=== PATIENT | male | born 1975 | race Caucasian/White ===

== ENCOUNTER 2018-02-27 10:25 | Day surgery (SDC) | payer OTHER, SELFPAY ==
[2018-02-06 15:02] VITALS: BMI 37.5
[2018-02-27 10:58] VITALS: BP 138/99; PULSE 86; RESP 16; TEMP 36.8; O2SAT 98; BMI 38.0
[2018-02-27] MEDS: Cefazolin 2 GM in 0.9% Normal Saline 100 ML IV (12:05)
[2018-02-27] MEDS: Bupivacaine Mpf 0.5% 30 ML VIAL (12:37)
[2018-02-27 13:15] VITALS: BP 128/87; BP 138/99; PULSE 112; RESP 16; TEMP 36.3; O2SAT 89
[2018-02-27 13:30] VITALS: BP 119/81; BP 138/99; PULSE 102; RESP 16; O2SAT 98
[2018-02-27 13:35] VITALS: BP 132/91; BP 138/99; PULSE 102; RESP 16; O2SAT 99
--- NOTE | 2018-02-27 13:38 | PCM.OPRPT ---
Problem List (1) Scrotal swelling Status: Acute Report of Operation Date of Procedure: 02/27/18 Pre-Operative Diagnosis: Bilateral inguinal hernias and umbilical hernia Post-Operative Diagnosis: Possible retroperitoneal herniation into the scrotum. Umbilical hernia Surgery/Procedure Performed:: Exploratory laparoscopy Specimen's removed: None Description of Procedure: The patient was brought back to the operating room and general anesthesia was induced. The patient was positioned and a Spence catheter was placed. The abdomen and scrotum were prepped and draped in the usual sterile fashion. Next an incision was made superior to the umbilicus and a Veress needle was placed into the abdomen and a water drop test was completed. Next a port was placed into the abdomen and the abdomen was insufflated to 15 mmHg. The camera was then placed into the abdomen and inspected and there were no injuries. The umbilical hernia was inspected. This was not able to be fully reduced. The inguinal regions were inspected next and it appeared that there was not a hernia on either side from the abdomen. I had Dr. De Paz come into the room for his opinion. It was felt that these were either hydroceles or retroperitoneal contents herniating into the scrotum. At this time I felt that it was safest to abort the surgery and obtain imaging to better differentiate. The camera was removed from the abdomen and the air was allowed to desufflate from the abdomen. The port was removed and the incision was anesthetized with Marcaine and closed with interrupted 4-0 Monocryl suture and Steri-Strip and a bandage. The patient had his Spence removed and was taken to PACU in stable condition. I will obtain a CT with oral and IV contrast next week. - Admit VTE Documentation VTE Mechan Device Prophylaxis: SCD's
--- NOTE | 2018-02-27 13:43 | DCINST_ITS ---
- Discharge Diagnoses Current Active Problems: Current Active and Chronic Problems (Last Reviewed 02/06/18 @ 15:04 by Carolyn Lin) Scrotal swelling (Acute) You will use the following diet at home:: Regular Your food should be the consistency of: Regular Your liquids should be the consistency of: Regular/Thin Discharge Activity: No Restrictions Call your doctor if your incision/area has: Continuous Slow Oozing, Sudden Increased Bleeding, Increased Pain/ Swelling, Increased Redness, Foul Smelling Discharge, Swelling at the incision site Call your doctor if you observe: Fever of 101 or Higher Change Dressing in (Days):: 2 - Remove steri strips in 1 week Pending Tests on Discharge: CT scan next Allergies/Adverse Reactions: Allergies No Known Allergies Allergy (Verified 02/25/18 13:20) Medications to take at Discharge Cholecalciferol (Vitamin D3) [Vitamin D3] 5,000 unit PO DAILY 02/25/18 Vitamin B Complex 1 each PO DAILY 02/25/18 Primary Care Physician: Josh Bonilla [Primary Care Provider] - Test Results: Test results from this visit will be discussed in further detail at your follow- up appointment, if applicable.
[2018-02-27 14:22] VITALS: BP 138/99; BP 146/83; PULSE 95; RESP 16; TEMP 36.3; O2SAT 96
== END 2018-02-27 14:26 | disposition home or self-care (01) ==
LOC: SDC 10:26 → AC 10:30
PROVIDERS: Family Provider Family Medicine; PCP Family Medicine; Referring Provider Surgery; Visit Provider Surgery
PROC: (CPT 49505; principal; 2018-02-27 11:40)
DX: K42.9 Umbilical hernia without obstruction or gangrene (principal); N50.89 Other specified disorders of the male genital organs; Z87.891 Personal history of nicotine dependence
CPT/HCPCS: 49505; J7120; J2405

== ENCOUNTER → 2018-03-05 15:44 | Outpatient (CLI) | payer OTHER, SELFPAY ==
[2018-02-27 10:58] VITALS: BMI 38.0
--- NOTE | 2018-03-05 15:47 | CT_ITS ---
STUDY: CT ABDOMEN AND PELVIS WITH CONTRAST REASON FOR EXAM: Male, 42 years old. Attempted hernia repair. RADIATION DOSAGE (If Supplied By Facility): CTDIvol = ( 21.43 ) mGy, DLP = ( 1672.67 ) mGycm TECHNIQUE: Transaxial images were obtained from the dome of the diaphragm to the symphysis pubis with oral contrast. 100CC ml of Isovue 300 contrast was administered. Sagittal and coronal images were reconstructed. Individualized dose optimization techniques were used for this CT. COMPARISON: None. FINDINGS: The visualized lung bases are unremarkable. The visualized portions of the heart are within normal limits. There is decreased attenuation of the liver consistent with steatosis. Normal gallbladder and extrahepatic biliary system. Normal spleen. Normal pancreas. Normal bilateral adrenal glands. Normal right kidney. Normal left kidney. Normal visualized stomach. Normal small intestine. Normal colon. The appendix is visualized and appears normal. Normal abdominal aorta. Normal inferior vena cava. Normal retroperitoneum. Normal urinary bladder. There is a small umbilical hernia containing fat. The neck of the hernia measures 2.3 cm in transverse dimension. Bilateral inguinal hernias containing fat. Normal osseous structures. CT/Abdomen/Pelvis WITH Contrast IMPRESSION: Small umbilical hernia. Bilateral inguinal hernias containing fat. Fatty infiltration of the liver. Electronically Signed: Owen Carballo MD at 14:15 EST Tel [phone], Service support ,
--- OUTSIDE RECORDS SUMMARY | 2018-05-10 11:25 | XMS RPT_ITS ---
:1975 Author Organization [facility] Care Team Providers Name Role Phone Gabriel Bedoya Attending Unavailable VaccariBennie henry Referring Unavailable Calabrsergei, Gabriel Attending Unavailable CalabrGabriel mai Referring Unavailable Josh Bonilla Primary Care Unavailable Calsumit, Gabriel Attending Unavailable Calabrsergei, Gabriel Referring Unavailable [facility] Josh Primary Care Unavailable CalGabriel arana Consulting Unavailable Calabretta, Gabriel Attending Unavailable Calabretta, Gabriel Referring Unavailable [facility] Primary Care Unavailable PROBLEMS PROBLEMS No Problem Records FoundPROCEDURES PROCEDURES No Procedure Records FoundRESULTS RESULTS PATIENT COMMUNICATION Observed: 03/10/2018 Status: F Source: REBECA 8:46 AM [facility] REPOSITORY [place] [address] [place] [address] PATIENT COMMUNICATION 03/10/18 MR#: [id number] Acct: [id number] Name: LIZZETH GALE Rep #: [id number] : 1975 Provider: Gabriel Bedoya MD Age/Sex: 42/M Location: [facility] Patient Communication Details: The patient was taken for surgery last week but upon entering the abdomen there was no peritoneal defect and herniated contents. The surgery was aborted and the patient had a CAT scan which showed bilateral inguinal hernias with only retroperitoneal contents which is extremely rare. I have referred the patient to Dr. Gibbs at [facility] as he is a hernia specialist. Gabriel Bedoya MD Pager: [facility] [address] [place] [address], [address] [place] [address] Office: 03/10/18 0846 <Electronically signed by Gabriel Bedoya MD> Date Gabriel Bedoya MD Cosigner Signature: Date (if applicable) CC: Josh Bonilla MD ABDOMEN/PELVIS WITH Observed: 03/05/2018 Status: F Source: GRAPEVIEW CONTRAST 3:47 PM [facility] REPOSITORY [facility] Imaging Services [address] [place] [address] Abdomen/Pelvis WITH Contrast MR#: [id number] Acct: [id number] Name: LIZZETH GALE Rep #: [id number] : 1975 M 42 From: Owen Carballo MD PCP: Josh Bonilla MD Status: REG CLI Study: Abdomen/Pelvis WITH Contrast Date of Exam: 03/05/18 Exam# [id number] Ordering Dr: Gabriel Bedoya MD STUDY: CT ABDOMEN AND PELVIS WITH CONTRAST REASON FOR EXAM: Male, 42 years old. Attempted hernia repair. RADIATION DOSAGE (If Supplied By Facility): CTDIvol = ( 21.43 ) mGy, DLP = ( 1672.67 ) mGycm TECHNIQUE: Transaxial images were obtained from the dome of the diaphragm to the symphysis pubis with oral contrast. 100CC ml of Isovue 300 contrast was administered. Sagittal and coronal images were reconstructed. Individualized dose optimization techniques were used for this CT. COMPARISON: None. FINDINGS: The visualized lung bases are unremarkable. The visualized portions of the heart are within normal limits. There is decreased attenuation of the liver consistent with steatosis. Normal gallbladder and extrahepatic biliary system. Normal spleen. Normal pancreas. Normal bilateral adrenal glands. Normal right kidney. Normal left kidney. Normal visualized stomach. Normal small intestine. Normal colon. The appendix is visualized and appears normal. Normal abdominal aorta. Normal inferior vena cava. Normal retroperitoneum. Normal urinary bladder. There is a small umbilical hernia containing fat. The neck of the hernia measures 2.3 cm in transverse dimension. Bilateral inguinal hernias containing fat. Normal osseous structures. CT/Abdomen/Pelvis WITH Contrast IMPRESSION: Small umbilical hernia. Bilateral inguinal hernias containing fat. Fatty infiltration of the liver. Electronically Signed: Owen Carballo MD at 14:15 EST Tel [phone], Service support , CC: Gabriel Bedoya MD; Josh Bonilla MD Child Development Consultant: Signed DISCHARGE INSTRUCTION Observed: 02/27/2018 Status: F Source: GRAPEVIEW 1:43 PM [facility] REPOSITORY [facility] Medical Records Department [address] [place] [address] Instructions for Home/Discharge Instructions 02/27/18 1340 MR#: [id number] Acct: [id number] Name: LIZZETH GALE Rep #: [id number] : 1975 42 From: Gabriel Bedoya MD PCP: Josh Bonilla MD Status: REG SDC - Discharge Diagnoses Current Active Problems: Current Active and Chronic Problems (Last Reviewed 02/06/18 @ 15:04 by Carolyn Lin) Scrotal swelling (Acute) You will use the following diet at home:: Regular Your food should be the consistency of: Regular Your liquids should be the consistency of: Regular/Thin Discharge Activity: No Restrictions Call your doctor if your incision/area has: Continuous Slow Oozing, Sudden Increased Bleeding, Increased Pain/ Swelling, Increased Redness, Foul Smelling Discharge, Swelling at the incision site Call your doctor if you observe: Fever of 101 or Higher Change Dressing in (Days):: 2 - Remove steri strips in 1 week Pending Tests on Discharge: CT scan next Allergies/Adverse Reactions: Allergies No Known Allergies Allergy (Verified 02/25/18 13:20) Medications to take at Discharge Cholecalciferol (Vitamin D3) [Vitamin D3] 5,000 unit PO DAILY 02/25/18 Vitamin B Complex 1 each PO DAILY 02/25/18 Primary Care Physician: Josh Bonilla [Primary Care Provider] - Test Results: Test results from this visit will be discussed in further detail at your follow-up appointment, if applicable. 02/27/18 1343 <Electronically signed by Gabriel Bedoya MD> Date Gabriel Bedoya MD CC: Josh Bonilla MD Signed OPERATIVE REPORT Observed: 02/27/2018 Status: F Source: GRAPEVIEW 1:40 PM [facility] REPOSITORY [facility] Medical Records Department [address] [place] [address] Operative Report 02/27/18 1338 MR#: [id number] Acct: [id number] Name: LIZZETH GALE Rep #: [id number] : 1975 42 From: Gabriel Bedoya MD PCP: Josh Bonilla MD Status: REG [facility] Location: [place] [address] Problem List (1) Scrotal swelling Status: Acute Report of Operation Date of Procedure: 02/27/18 Pre-Operative Diagnosis: Bilateral inguinal hernias and umbilical hernia Post-Operative Diagnosis: Possible retroperitoneal herniation into the scrotum. Umbilical hernia Surgery/Procedure Performed:: Exploratory laparoscopy Specimen's removed: None Description of Procedure: The patient was brought back to the operating room and general anesthesia was induced. The patient was positioned and a Spence catheter was placed. The abdomen and scrotum were prepped and draped in the usual sterile fashion. Next an incision was made superior to the umbilicus and a Veress needle was placed into the abdomen and a water drop test was completed. Next a port was placed into the abdomen and the abdomen was insufflated to 15 mmHg. The camera was then placed into the abdomen and inspected and there were no injuries. The umbilical hernia was inspected. This was not able to be fully reduced. The inguinal regions were inspected next and it appeared that there was not a hernia on either side from the abdomen. I had Dr. De Paz come into the room for his opinion. It was felt that these were either hydroceles or retroperitoneal contents herniating into the scrotum. At this time I felt that it was safest to abort the surgery and obtain imaging to better differentiate. The camera was removed from the abdomen and the air was allowed to desufflate from the abdomen. The port was removed and the incision was anesthetized with Marcaine and closed with interrupted 4-0 Monocryl suture and Steri-Strip and a bandage. The patient had his Spence removed and was taken to PACU in stable condition. I will obtain a CT with oral and IV contrast next week. - Admit VTE Documentation VTE Mechan Device Prophylaxis: SCD's 02/27/18 1340 <Electronically signed by Gabriel Bedoya MD> Date Gabriel Bedoya MD CC: Gabriel Bedoya MD; Josh Bonilla MD Signed SURGERY VISIT REPORT Observed: 02/13/2018 Status: F Source: GRAPEVIEW 8:24 AM [facility] REPOSITORY [facility] [address] [place] [address]. 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 Social History Smoking Status: Former smoker second hand exposure: No alcohol intake: current alcohol intake frequency: a few times a month substance use type: does not use caffeine: Yes frequency: does not exercise seatbelt use: always HPI HPI HPI: LIZZETH GALE, is a 42 M who presents to the office today for inguinal and umbilical hernias. The patient reports that he has a large umbilical hernia which is enlarging and he has 2 very large inguinal hernias occupying his entire scrotum. Patient reports he has had been enlarging for years. He does not report any nausea or vomiting or radiation of pain. ROS General General: No weight change or fatigue HEENT HEENT: No difficulty swallowing, eye injury or eye surgery Endo Endocrine: No thyroid disease or diabetes mellitus Skin Skin: No rash or changing moles Musc Musculoskeletal: No back problems, arthritis or rheumatoid arthritis Cardio Cardiovascular: No murmur, pacemaker, heart disease, atrial fibrillation, high blood pressure, heart attack, heart stent, palpitations, shortness of breat with exertion or chest pain Psych Psychiatric: No depression or anxiety Resp Respiratory: No shortness of breath, No sleep apnea, No cough, No COPD, No asthma, No emphysema, No wheezing Gastro Gastrointestinal: No abdominal pain, No nausea or vomiting, No diarrhea, No constipation, No blood in stool, No acid reflux, No hemorrhoids, No ulcers, No gallbladder problem, No black,tarry stools Additional Details: Umbilical and groin swelling Brad Hematologic: No blood thinners Neuro Neurologic: Yes system reviewed and no additional complaints, except as docu Exam Const General: cooperative Orientation: alert, oriented x3 [facility] Head: normal to inspection Ears: hearing grossly normal bilaterally Eyes General: appearance normal, both eyes and all related structures Visual Osullivan: normal visual osullivan by confrontation Neck Neck: normal visual inspection Chest Chest palpation AND inspection: normal inspection of the chest Resp Effort AND Inspection: normal respiratory effort Auscultation: clear to auscultation bilaterally Cardio Rate: regular rate Rhythm: regular rhythm Heart Sounds: no murmurs GI Inspection: non-distended Palpation: soft, nontender Other: The patient has a large reducible umbilical hernia. He has very large bilateral inguinal hernias which are incarcerated but no signs of strangulation. Musc Cervical Spine: normal cervical lordosis, cervical ROM normal Skin General: no rashes or lesions noted Neuro General: alert, oriented x3 Cranial Nerves: CN's II-XI intact bilaterally Cognition: normal cognition Extrem General: normal to inspection, full ROM Psych Appearance: grossly normal Affect: normal affect Assessment AND Plan Problems 1. Umbilical hernia without obstruction and without gangrene K42.9 2. Non-recurrent bilateral inguinal hernia without obstruction or gangrene K40.20 Plan 1. The patient has a very large umbilical hernia and bilateral large incarcerated inguinal hernias. I explained robotic assisted laparoscopic inguinal hernia repair to the patient. I explained that I did not know if I would be able to fix the umbilical hernia at the same time. I also explained that I may have to convert to an open procedure if I was unable to reduce these once the patient is under general anesthesia. The patient understands. 2. I explained the risks of robotic assisted laparoscopic inguinal hernia repair to the patient. I explained the risks including but not limited to bleeding, infection, injury to underlying bowel, chronic groin pain, hernia recurrence, conversion to open surgery or damage to spermatic cord and testicle. The patient understands all the risks and is willing to proceed. If I am able to repair the umbilical hernia laparoscopically at the same time I will. Gabriel Bedoya MD Pager: [facility] [address] [place] [address], [address] [place] [address] Office: Coding Level of Care Code Off vis,new,level 4 Diagnoses Umbilical hernia without obstruction and without gangrene K42.9 Obstruction and gangrene presence: without obstruction or gangrene Non-recurrent bilateral inguinal hernia without obstruction or gangrene K40.20 Obstruction and gangrene presence: without obstruction or gangrene Recurrence: non-recurrent Time Spent (min) 45 02/13/18 0824 <Electronically signed by Gabriel Bedoya MD> Date Gabriel Bedoya MD Cosigner Signature: Date (if applicable) CC: Bennie Julio MD ALLERGIES ALLERGIES DATE TYPE / CODE NAME / CODE REACTION SEVERITY SOURCE 02/25/2018 Drug No Known Unknown [place] [facility] Allergy/4160 Allergies/F00 Hospital 62245(SNOMED [id number](RXNOR Repository CT) M) ENCOUNTERS ENCOUNTERS ADMIT/DISCHARGE ACCOUNT ADMITTING ENCOUNTER LOCATION SOURCE NUMBER CLASS 03/05/2018 [id number] Ambulatory [place] 5 [facility] ing:CT Repository 02/27/2018 [id number] Ambulatory BMSBuilding:B [place] 2 MS.[facility] Repository 02/27/2018/ [id number] Ambulatory [place] 9 2 [facility] ing:SDCRoom: Repository AC20 02/06/2018/ [id number] Ambulatory BMSBuilding:B [place] 8 4 MS.[facility] Repository PAYERS PAYERS ENCOUNTER GUARANTOR PAYER SUBSCRIBER SOURCE 03/05/2018 LIZZETH S Primary LIZZETH S [place] [id number] TR Insurance:JORGE KING: [address] Number: [id number] [facility] Hospital [address]Mut: [id number] Repository Date:[id number] [place] [address]FR: 03/05/2018 Secondary NOT GIVENUNK [place] Insurance:SELF PAY [facility] Number: Effective Repository Date:2018-02-27 02/27/2018 LIZZETH S Primary LIZZETH Jose [id number] TR Insurance:SUMMA SHAHLADOB: [address] Number: [id number] Valley Hospital [address]Kyg: [id number] Repository Date:[id number] BOX () [address] [place] [id number]: 02/27/2018 Secondary NOT GIVENUNK [place] Insurance:SELF PAY [facility] Number: Effective Repository Date:2018-02-27 02/27/2018 LIZZETH S Primary LIZZETH S [place] [id number] TR Insurance:DAPHNIEA CHRISTINEB: [address] Number: [id number] Valley Hospital [address]Iat: [id number] Repository Date:[id number] BOX () [address] [place] [id number]: 02/27/2018 Secondary NOT GIVENUNK [place] Insurance:SELF PAY [facility] Number: Effective Repository Date:2018-02-12 02/06/2018 LIZZETH S Primary LIZZETH Jose [id number] TR Insurance:DAPHNIEA CHRISTINEB: [address] Number: [id number] Valley Hospital [address]Pew: [id number] Repository Date:[id number] BOX () [address] [place] [id number]: 02/06/2018 Secondary NOT GIVENUNK [place] Insurance:SELF PAY [facility] Number: Effective Repository Date:2018-01-27
== END ==
PROVIDERS: Family Provider Family Medicine; PCP Family Medicine; Referring Provider Surgery; Visit Provider Surgery
DX: N50.89 Other specified disorders of the male genital organs (principal); K40.90 Unilateral inguinal hernia, without obstruction or gangrene, not specified as recurrent
CPT/HCPCS: 74177; Q9967